=== PATIENT | male | born 1995 | race Caucasian/White ===

== ENCOUNTER 2024-11-07 11:24 | Emergency (ER) | payer OTHER, SELFPAY | END 2024-11-07 12:23 | disposition home or self-care (01) | LOC: NAV ERS 11:24 | DX: J10.1 Influenza due to other identified influenza virus with other respiratory manifestations (principal) | CPT/HCPCS: 99283 ==

== ENCOUNTER 2025-05-08 17:27 | Emergency (ER) | payer OTHER | END 2025-05-08 20:00 | disposition home or self-care (01) | LOC: NAV ERS 17:27 | DX: S60.211A Contusion of right wrist, initial encounter (principal); W55.12XA Struck by horse, initial encounter; Y93.89 Activity, other specified | CPT/HCPCS: 99283 ==